=== PATIENT | female | born 1935 | race Caucasian/White ===

== ENCOUNTER 2017-01-20 13:33 | Outpatient (CLI) | payer MEDICARE, OTHER ==
--- NOTE | 2017-01-27 09:17 | MMO ---
BILATERAL SCREENING MAMMOGRAM: DATE: 01/20/17 HISTORY: 81-year-old female for screening mammography. History of right breast biopsy in 2004. COMPARISON: 12/10/15. FINDINGS: Bilateral MLO and CC views of the breasts show scattered fibroglandular breast tissue. Bilateral vas cular calcifications are seen. Other benign-appearing calcifications are seen in both breasts. There is no evidence of suspicious mass, suspicious cluster of microcalcifications, or area of architectu ral distortion. Interpretation of this mammogram was performed with the assistance of computer-aided detection. IMPRESSION: BIRADS 2: Benign Finding(s) Annual screening mammography is recommended. POS: [facility]
== END 2017-01-20 13:34 | disposition home or self-care (01) ==
LOC: MAMMO 13:33
PROVIDERS: ATTEND Obstetrics & Gynecology
DX: Z12.31 Encounter for screening mammogram for malignant neoplasm of breast (principal)
CPT/HCPCS: 77067; G0202

== ENCOUNTER 2018-01-28 15:03 | Outpatient (CLI) | payer MEDICARE, OTHER | END 2018-01-28 15:04 | disposition home or self-care (01) | LOC: BICMAMMO 15:03 | PROVIDERS: ATTEND Obstetrics & Gynecology | DX: Z12.31 Encounter for screening mammogram for malignant neoplasm of breast (principal); Z80.3 Family history of malignant neoplasm of breast | CPT/HCPCS: 77063; 77067 ==